=== PATIENT | male | born 1955 | race Caucasian/White ===

== ENCOUNTER 2021-08-01 07:46 | Day surgery (SDC) | payer MEDICARE, OTHER ==
[~2021-08-01 07:46] MED LIST: Acetaminophen 325 MG Tab PO SCH; Morphine 8 MG, EPINEPHrine 0.3 MG, Cefuroxime 750 MG, Ketorolac 30 MG, Sodium Chloride ... PRN; Pregabalin 25 MG Cap PO SCH; Vancomycin 1 GM SDV ONE; oxyCODONE ER 10 MG TAB.ER PO SCH
[2021-08-01] MEDS: Lactated Ringers 1,000 ML IV SCH ×3 (07:50→15:30)
[2021-08-01] MEDS ORDERED: Sodium Chloride 0.9% 10 ML Syringe FLUSH PRN (08:34)
[2021-08-01] MEDS ORDERED: Lidocaine 1%/Sod Bicarbonate in NS 8.4% 1 ML Syringe IDERM PRN (08:34)
[2021-08-01] MEDS ORDERED: Sodium Chloride 0.9% 10 ML Syringe FLUSH SCH (09:00)
[2021-08-01] MEDS ORDERED: Midazolam 1 MG/ML 2 ML SDV ONE ×2 (09:32→11:02)
[2021-08-01] MEDS ORDERED: Propofol 200 MG/20 ML SDV ONE ×4 (09:32→11:49)
[2021-08-01] MEDS ORDERED: Lidocaine 1% 5 ML VIAL ONE (09:32)
[2021-08-01] MEDS ORDERED: ceFAZolin 1 GM Vial ONE (09:37)
[2021-08-01] MEDS ORDERED: Phenylephrine 1% 10 MG/ML SDV ONE ×2 (11:00→12:42)
[2021-08-01] MEDS ORDERED: Ondansetron 4 MG/2 ML SDV IVPUSH PRN (11:31)
[2021-08-01] MEDS ORDERED: fentaNYL 100 MCG/2 ML SDV IVPUSH PRN (11:31)
[2021-08-01] MEDS ORDERED: HYDROmorphone 0.5 MG/0.5 ML Syringe IVPUSH PRN (11:31)
[2021-08-01] MEDS ORDERED: Lactated Ringers 500 ML ONE (12:20)
[2021-08-01] MEDS ORDERED: Lactated Ringers 1,000 ML ONE (12:20)
[2021-08-01] MEDS ORDERED: oxyCODONE 5 MG Tab PO ONE (13:16)
== END 2021-08-01 16:17 | disposition home or self-care (01) ==
LOC: JD.SDS 07:46
PROVIDERS: ATTEND Orthopaedic Surgery
DX: M16.12 Unilateral primary osteoarthritis, left hip (principal); I10 Essential (primary) hypertension; Z88.0 Allergy status to penicillin; Z91.040 Latex allergy status; Z79.899 Other long term (current) drug therapy
CPT/HCPCS: 0055T; 27130; 36415; 73501; 86850; 86900; 86901; 97110; 97116; 97161; A9270; C1713; C1776; J0171; J0690; J0697; J1885; J2250; J2270; J2370; J2405; J2704; J3370; J7120; 01214